=== PATIENT | male | born 1945 | race Caucasian/White ===

== ENCOUNTER → 2020-03-31 18:08 | Outpatient (CLI) | payer MEDICARE ==
[2020-03-31 19:33] LABS: BILIRUBIN NEGATIVE (NEGATIVE); KETONE NEGATIVE (NEGATIVE); NITRITE NEGATIVE (NEGATIVE); UROBILINOGEN NORMAL mg/dL (< 2)
== END | disposition home or self-care (01) ==
LOC: D.LABREF 18:08
PROVIDERS: ATTEND Family Medicine
DX: Z87.440 Personal history of urinary (tract) infections (principal); R41.0 Disorientation, unspecified

== ENCOUNTER → 2020-04-02 18:42 | Outpatient (CLI) | payer MEDICARE ==
[2020-04-02 19:49] LABS: INR 1.71 (0.85-1.17); PROTIME 19.8 SECONDS (11.6-15.0)
== END | disposition home or self-care (01) ==
LOC: D.LABREF 18:42
PROVIDERS: ATTEND Family Medicine
DX: Z95.2 Presence of prosthetic heart valve (principal)